=== PATIENT | female | born 1980 | race Caucasian/White ===

== ENCOUNTER 2018-12-05 15:54 | Outpatient (CLI) | payer BC, SELFPAY ==
--- NOTE | 2018-12-05 16:13 | DI.RAD_ITS ---
SYMPTOMS/DIAGNOSIS: COUGH, R05 PA AND LATERAL CHEST: The cardiac and mediastinal contours have a normal appearance. The lungs are well inflated and clear. No infiltrate or effusion is seen. There are no visible emphysematous changes or interstitial changes. IMPRESSION: Negative chest x-ray.
== END 2018-12-05 16:14 ==
PROVIDERS: PCP Family Medicine; Visit Provider Nurse Practitioner
DX: R05 Cough (principal)
CPT/HCPCS: 71046

== ENCOUNTER 2019-06-22 11:09 | Outpatient (REF) | payer BC, SELFPAY ==
[2019-06-22 21:09] LABS: ALT 27 U/L (12-78); AST 16 U/L (15-37); Anion Gap 9.2 mmol/L (3-11); BUN 11 mg/dL (7-18); CO2 29.8 mmol/L (21.0-32.0); CREATININE 0.92 mg/dL (0.55-1.02); Calcium 8.6 mg/dL (8.5-10.1); Chloride 104 mmol/L (98-107); Glucose 94 mg/dL (70-100); Potassium 4.2 mmol/L (3.5-5.1); Sodium 143 mmol/L (136-145)
[2019-06-22 21:14] LABS: Hemoglobin A1C 5.6 % (4.5-6.2)
== END 2019-06-22 11:29 ==
LOC: NCHCN 11:09
PROVIDERS: PCP Family Medicine; Visit Provider Nurse Practitioner Family
DX: Z51.81 Encounter for therapeutic drug level monitoring (principal); Z79.899 Other long term (current) drug therapy
CPT/HCPCS: 80048; 83036; 84450; 84460

== ENCOUNTER 2021-01-30 17:31 | Outpatient (REF) | payer OTHER, SELFPAY ==
--- NOTE | 2021-01-30 16:45 | PAPFT_PTH ---
PATIENT: Giselle Steiner LOC: [facility] U#:[id number] AGE/SX: 40/F ROOM: RE01/30/[address]: Anika Jack : 1980 BED: DIS: 01/30/2021 SPEC #: [id number] RECD: 02/02/21 13:10 STATUS: KEVIN RERoni #: [id number] VERONA: 01/30/21 16:[address]: Anika Jack DEPT: [facility] Cytology RECD BY: Marisol Hansen ENTERED: 02/02/21 13:10 SP TYPE: PAPFT OTHR DR: Marylin Garcia Tissues: 1 - CX/ENDOCX FOR PAP SMEARS Procedures: PAP THIN PREP/UVM Screening HPV DNA PROBE Comments: [id number]
== END 2021-01-30 17:32 | disposition home or self-care (01) ==
LOC: NCHCN 17:31
PROVIDERS: PCP Family Medicine; Visit Provider Nurse Practitioner Family
DX: Z00.00 Encounter for general adult medical examination without abnormal findings (principal); Z12.4 Encounter for screening for malignant neoplasm of cervix; Z01.419 Encounter for gynecological examination (general) (routine) without abnormal findings; Z11.51 Encounter for screening for human papillomavirus (HPV)
CPT/HCPCS: 88142; 87624

== ENCOUNTER 2021-02-16 02:30 | Outpatient (CLI) | payer OTHER, SELFPAY ==
--- NOTE | 2021-02-16 | DI.US_ITS ---
EXAM: US BREAST LT LIMITED CLINICAL HISTORY: LT BREAST LUMP, N63.23. TECHNIQUE: Limited ultrasound of the left breast was performed. The lateral half of the breast from 12 o'clock through 6 o'clock position, inclusive, was scanned. Also the left axilla. COMPARISON: Prior mammogram performed today was reviewed FINDINGS: There is no evidence of solid or significant cystic lesion. Left axilla is negative for significant adenopathy IMPRESSION: Negative left breast ultrasound. Today's diagnostic bilateral mammogram was also negative. Please see that separate report Appropriate follow-up is repeat breast imaging in 3 months time if the provider still feels that ther e is a lump. Alternatively this patient should be sent for breast surgery consultation. BI-RADS Category 1 - Negative Breast Density - Category B - Scattered areas of fibroglandular density Breast density Category C or D implies that the patient has dense breast tissue. Dense breast tissue can make it harder to find cancer on a mammogram. Dense breast tissue is also associated with an incr eased risk of breast cancer. This information about the result of the mammogram report was provided to the patient to raise their awareness. Use this report when you speak with the patient about their risks for breast cancer, which includes their family history. At that time, you may recommend additional screening tests (Ultrasoun d or MRI) as these tests may add significant information. A negative radiographic report should not delay biopsy if a dominant or clinically suspicious mass is present. Up to ten percent of cancers are not identified on mammography. A negative report may reinforce clinical impression. Adenosis and dense breasts may obscure an underlying neoplasm. False positive reports average 6 to 10%. Patient will receive a letter notifying them of these results.
--- NOTE | 2021-02-16 | DI.MAMMO_ITS ---
EXAM: MG MAMMO DIAGNOSTIC BI CLINICAL HISTORY: LT BREAST LUMP, N63.23, DIAGNOSTIC, FAMILY H/O BREAST CA,Z80.3. TECHNIQUE: Bilateral CC and MLO mammographic images were obtained with 3D Tomosynthesistechnique and utilizing computer aided detection (CAD). Also performed spot-compression CC and MLO views of the ar ea of possible clinical concern in the left breast. COMPARISON: None. This is a baseline mammogram on this 40-year-old patient. Her provider apparentl y felt a lump in the left breast upon routine examination. This patient did not present to her provi bessie with a lump. She still does not feel a lump. FINDINGS: There are no ominous masses nor malignant-appearing microcalcification groups in either breast. No s ignificant architectural distortion or skin thickening-traction. We also performed left breast ultrasound over the area of possible concern following today's mammogra m. This did not reveal any focal ultrasound findings Appropriate clinical follow-up is recommended. Clinically indicated repeat imaging in 3 months time could be performed. Alternatively this patient can have consultation with breast surgeon if there is high suspicion for a concerning lump on this despite negative convention breast imaging. IMPRESSION: No radiographic evidence of malignancy. See separate left breast ultrasound report BI-RADS Category 1 - Negative Breast Density - Category B - Scattered areas of fibroglandular density Breast density Category C or D implies that the patient has dense breast tissue. Dense breast tissue can make it harder to find cancer on a mammogram. Dense breast tissue is also associated with an incr eased risk of breast cancer. This information about the result of the mammogram report was provided to the patient to raise their awareness. Use this report when you speak with the patient about their risks for breast cancer, which includes their family history. At that time, you may recommend additional screening tests (Ultrasoun d or MRI) as these tests may add significant information. A negative radiographic report should not delay biopsy if a dominant or clinically suspicious mass is present. Up to ten percent of cancers are not identified on mammography. A negative report may reinforce clinical impression. Adenosis and dense breasts may obscure an underlying neoplasm. False positive reports average 6 to 10%. Patient will receive a letter notifying them of these results.
== END 2021-02-16 02:50 ==
PROVIDERS: PCP Family Medicine; Visit Provider Nurse Practitioner Family
DX: N63.23 Unspecified lump in the left breast, lower outer quadrant (principal); Z80.3 Family history of malignant neoplasm of breast
CPT/HCPCS: 76642; 77062; 77066; G0279

== ENCOUNTER → 2022-04-14 02:17 | Outpatient (CLI) | payer BC, SELFPAY ==
--- NOTE | 2022-04-14 16:30 | DI.MAMMO_ITS ---
Exam(s) MAMMO SCREENING EXAM: MAMMO SCREENING CLINICAL HISTORY: SCREEENING FOR BREAST CA, Z12.39, FAM HX BREAST CA, Z80.3. TECHNIQUE: Bilateral full field digital CC and MLO mammographic images were obtained with 3D tomosyn thesis and utilizing computer aided detection (CAD). COMPARISON: Prior baseline mammogram of February 2021 Very strong family history here. FINDINGS: No new significant radiograph findings right breast Medial aspect left breast there is some asymmetric tissue which appears slightly more dense than prev ious study. Less concerning on 3D imaging. Malignant-appearing microcalcification groups in this re gion nor elsewhere in either breast. There is no significant architectural distortion nor skin thickening-retraction. IMPRESSION: 1. No radiographic evidence of malignancy in right breast. 2. Medial left breast findings described above. Recommend spot compression CC and MLO views. Also b reast ultrasound. Very strong family history here BI-RADS Category 0 - Assessment Incomplete: Need additional imaging evaluation Breast Density - Category B - Scattered areas of fibroglandular density Breast density Category C or D implies that the patient has dense breast tissue. Dense breast tissue can make it harder to find cancer on a mammogram. Dense breast tissue is also associated with an incr eased risk of breast cancer. This information about the result of the mammogram report was provided to the patient to raise their awareness. Use this report when you speak with the patient about their risks for breast cancer, which includes their family history. At that time, you may recommend additional screening tests (Ultrasoun d or MRI) as these tests may add significant information. A negative radiographic report should not delay biopsy if a dominant or clinically suspicious mass is present. Up to ten percent of cancers are not identified on mammography. A negative report may reinforce clinical impression. Adenosis and dense breasts may obscure an underlying neoplasm. False positive reports average 6 to 10%. Patient will receive a letter notifying them of these results.
== END ==
PROVIDERS: PCP Nurse Practitioner Family; Visit Provider Nurse Practitioner Family
DX: Z12.31 Encounter for screening mammogram for malignant neoplasm of breast (principal); Z80.3 Family history of malignant neoplasm of breast; R92.8 Other abnormal and inconclusive findings on diagnostic imaging of breast
CPT/HCPCS: 77063; 77067

== ENCOUNTER → 2022-04-26 01:50 | Outpatient (CLI) | payer BC, SELFPAY ==
--- NOTE | 2022-04-26 | DI.US_ITS ---
Exam(s) MG MAMMO SCREEN CALL BACK UNI US BREAST LT LIMITED EXAM: MG MAMMO SCREEN CALL BACK UNI and U/S breast LT limited CLINICAL HISTORY: F/U ABNL MAMMO, LT BREAST ASYMMETRIC TISSUE,STRONG FAMILY H/O BREAST CA. TECHNIQUE: Craniocaudal and mediolateral oblique Full Field Digital Mammography views of the left br east with Computer Aided Diagnosis followed by Tomosynthesis and left breast ultrasound. COMPARISON: Priors available for comparison. FINDINGS: Mammography/Tomosynthesis: Masses/Architectural Distortion: None seen. Spot compression view shows no persistent abnormality. T he area looks like normal fibroglandular tissue. Microcalcifictions: No suspicious pleomorphic-type are seen. Skin Thickening/Nipple Retraction: None. Limited left breast US: Echotexture: Normal appearance of the glandular tissue. Shadowing: No suspicious foci. Cyst: There is a collection of simple cyst at the 9 o'clock position of the left breast 2 cm from the nipple. Solid lesions: None seen. Ductal dilation: None. IMPRESSION: 1. No evidence of malignancy is noted. 2. Unless there is more urgent need, follow-up screening mammography is recommended, as per [place] [employer] guidelines. 3. The findings were discussed with the patient on the date of the examination. BI-RADS Category 2 - Benign Findings Breast Density - Category B - Scattered areas of fibroglandular density Breast density Category C or D implies that the patient has dense breast tissue. Dense breast tissue can make it harder to find cancer on a mammogram. Dense breast tissue is also associated with an incr eased risk of breast cancer. This information about the result of the mammogram report was provided to the patient to raise their awareness. Use this report when you speak with the patient about their risks for breast cancer, which includes their family history. At that time, you may recommend additional screening tests (Ultrasoun d or MRI) as these tests may add significant information. A negative radiographic report should not delay biopsy if a dominant or clinically suspicious mass is present. Up to ten percent of cancers are not identified on mammography. A negative report may reinforce clinical impression. Adenosis and dense breasts may obscure an underlying neoplasm. False positive reports average 6 to 10%. Patient will receive a letter notifying them of these results.
== END ==
PROVIDERS: PCP Family Medicine; Visit Provider Nurse Practitioner Family
DX: Z12.31 Encounter for screening mammogram for malignant neoplasm of breast (principal); R92.8 Other abnormal and inconclusive findings on diagnostic imaging of breast; Z80.3 Family history of malignant neoplasm of breast; N60.12 Diffuse cystic mastopathy of left breast
CPT/HCPCS: 76642; 77063; 77067

== ENCOUNTER 2023-03-03 17:44 | Outpatient (REF) | payer BC, SELFPAY ==
[2023-03-03 15:10] LABS: ALT 19 U/L (14-59); AST 21 U/L (15-37); Alkaline Phosphatase 131 U/L (46-116); Anion Gap 10.3 mmol/L (3-11); BUN 14 mg/dL (7-18); Bilirubin, Total 0.3 mg/dL (0.2-1.0); CO2 23.7 mmol/L (21.0-32.0); CREATININE 0.9 mg/dL (0.55-1.02); Calcium 9.2 mg/dL (8.5-10.1); Calculated LDL 134 mg/dL (<100); Chloride 104 mmol/L (98-107); Cholesterol 220 mg/dL (<200); Estimated GFR 81.86 (mL/min/1.73m2); Glucose 102 mg/dL (74-106); HDL Cholesterol 32 mg/dL (40-60); Potassium 4.2 mmol/L (3.5-5.1); Sodium 138 mmol/L (136-145); Total Protein 8.4 g/dL (6.4-8.2); Triglyceride 272 mg/dL (<150)
[2023-03-03 15:30] LABS: Vitamin D 25 Total 16.7 ng/mL (30-100)
== END 2023-03-03 17:45 | disposition home or self-care (01) ==
LOC: NCHCN 17:44
PROVIDERS: PCP Family Medicine; Visit Provider Nurse Practitioner Family
DX: Z00.00 Encounter for general adult medical examination without abnormal findings (principal); E55.9 Vitamin D deficiency, unspecified
CPT/HCPCS: 80053; 80061; 82306

== ENCOUNTER 2024-05-04 15:59 | Outpatient (REF) | payer BC, SELFPAY ==
--- OUTSIDE RECORDS SUMMARY | 2024-05-04 16:01 | XMS_ITS | Continuity of Care Document ---
Author Name Unknown Organization [facility] Address [address] [place] [address] Care Team Providers Care Diving Coach Name Role Phone Anika Jack Primary Care Physician Encounter [facility] [id number] Date(s): 01/06/24 - 01/06/24 [facility] [address] [place] [address] Discharge Disposition: Home Allergies, Adverse Reactions, Alerts Substance Reaction Severity Status Adhesive Bandage Unknown Active Latex Unknown Active Assessment and Plan Future Appointments Medications buPROPion 150 mg/12 hours (SR) oral tablet, extended release Take 2 tablet once daily, 0 Refill(s) Start Date: 12/30/23 Status: Ordered Nexplanon 68 mg subcutaneous implant 0 Refill(s) Start Date: 12/30/23 Status: Ordered Saxenda 18 mg/3 mL subcutaneous solution 0.6 mg =, Subcutaneous, Daily, with a target of 2.4mg once daily, # 9 mL, 0 Refill(s) Start Date: 12/30/23 Stop Date: 01/06/24 Status: Ordered sertraline 50 mg oral tablet 50 mg = 1 tab, Oral, Daily, # 30 tab, 0 Refill(s) Start Date: 12/30/23 Status: Ordered zolpidem 5 mg oral tablet See Instructions, take 1-2 PO night of sleep study if needed, # 2 tab, 0 Refill(s), Pharmacy: [id number] Start Date: 01/05/24 Status: Ordered Problem List Condition Confirmation Course Effective Dates Status Health St at[facility] Informant Adjustment disorder with depressed mood Confirmed Active Binge eating disorder Confirmed Active Insomnia Confirmed Active Obesity Confirmed Active Pain in thoracic spine Confirmed Active Paresthesia Confirmed Active Restless leg syndrome Confirmed Active Snoring Confirmed Active Back muscle spasm Confirmed Active Varicose veins of calf Confirmed Active Vitamin D deficiency Confirmed Active Patient Care team information Care Team Personnel Name: Anika Jack Position: No Access Member Role: Primary Care Physician Address: Address: [address] [address] [place] Care Team Related Persons Name: BRANDO HUNT Deepa Address: [address] [id number]
--- OUTSIDE RECORDS SUMMARY | 2024-05-04 16:01 | XMS_ITS | Continuity of Care Document ---
Author Name Unknown Organization [facility] Address [address] [place] [address] Care Team Providers Care Oven Stripper Name Role Phone Anika Jack Primary Care Physician [phone] Encounter [facility] [id number] Date(s): 01/12/24 - 01/12/24 [facility] [address] [place] [address] Discharge Disposition: Home Allergies, Adverse Reactions, Alerts [...] needed, # 2 tab, 0 Refill(s), Pharmacy: [id number] Start Date: 01/05/24 Status: Ordered [...] Member Role: Primary Care Physician Address: Address: [address] [address] [place] Care Team Related Persons Name: BRANDO HUNT Deepa Address: [address] [id number]
[2024-05-04 21:25] LABS: HCT 43.7 % (36.0-46.0); HGB 14.2 g/dL (11.2-15.7); MCH 28.1 pg (27.0-33.0); MCHC 32.5 % (32.0-36.0); MCV 87 fL (80-95); MPV 10.8 fL (8.0-11.0); Platelet Count 406 10^3/uL (130-400); RBC 5.05 10^6/uL (3.93-5.22); RDW 13.5 % (11.7-14.6); RDW-SD 42.7 fL; WBC 8.99 10^3/uL (4.4-10.8)
[2024-05-04 21:40] LABS: ALT 19 U/L (14-59); AST 19 U/L (15-37); Albumin 3.9 g/dL (3.4-5.0); Alkaline Phosphatase 122 U/L (46-116); Anion Gap 9.8 mmol/L (3-11); BUN 10 mg/dL (7-18); CO2 26.2 mmol/L (21.0-32.0); CREATININE 0.8 mg/dL (0.55-1.02); Calcium 8.9 mg/dL (8.5-10.1); Calculated LDL 159 mg/dL (<100); Chloride 104 mmol/L (98-107); Cholesterol 238 mg/dL (<200); Glucose 96 mg/dL (74-106); HDL Cholesterol 37 mg/dL (40-60); Potassium 4.3 mmol/L (3.5-5.1); Sodium 140 mmol/L (136-145); Total Protein 7.4 g/dL (6.4-8.2); Triglyceride 213 mg/dL (<150)
== END 2024-05-04 16:00 | disposition home or self-care (01) ==
LOC: NCHCN 15:59
PROVIDERS: PCP Family Medicine; Visit Provider Nurse Practitioner Family
DX: Z00.00 Encounter for general adult medical examination without abnormal findings (principal); E66.9 Obesity, unspecified; Z13.220 Encounter for screening for lipoid disorders; Z13.228 Encounter for screening for other metabolic disorders; Z13.0 Encounter for screening for diseases of the blood and blood-forming organs and certain disorders involving the immune mechanism; Z13.1 Encounter for screening for diabetes mellitus
CPT/HCPCS: 80053; 80061; 85027; 83036

== ENCOUNTER 2024-06-01 10:37 | Outpatient (REF) | payer BC, SELFPAY ==
--- NOTE | 2024-06-01 13:30 | SKI_PTH ---
PATIENT: Giselle Steiner LOC: [facility] U#:[id number] AGE/SX: 44/F ROOM: RE06/01/[address]: Anika Jack : 1980 BED: DIS: 06/01/2024 SPEC #: [id number] RECD: 06/04/24 11:47 STATUS: KEVIN REQ #: [id number] VERONA: 06/01/24 13:[address]: Anika Jack DEPT: Surgical Specimen RECD BY: Marisol Hansen ENTERED: 06/04/24 11:48 SP TYPE: LOLI ARTEAGA DR: Marylin Garcia Tissues: 1 - SKIN BIOPSY(SHAVE/PUNCH) Procedures: SKIN LEVEL 4 Comments: [id number]
== END 2024-06-01 10:38 | disposition home or self-care (01) ==
LOC: NCHCN 10:37
PROVIDERS: PCP Family Medicine; Visit Provider Nurse Practitioner Family
DX: D22.5 Melanocytic nevi of trunk
CPT/HCPCS: 88305

== ENCOUNTER 2024-06-26 06:25 | Day surgery (SDC) | payer BC, SELFPAY ==
--- NOTE | 2024-06-25 14:51 | PDOC.DSDIS_ITS ---
Date of service: 06/26/24 Time of Service: 09:31 Discharge Plan Disposition Patient Disposition: Home Condition: Good Discharge Details Reason For Visit: gallbladder removal Attending Provider: Riri Johns Primary Care Provider: Anika Jack Home Meds and New Rx's Prescriptions: New ondansetron 4 mg tablet,disintegrating 4 mg PO Q6H PRNQty: 7 0RF tramadol 50 mg tablet 50 mg PO Q4H PRNQty: 14 0RF Continued Wegovy 0.25 mg/0.5 mL pen injector 0.25 mg subcut QWEEK Rx Instructions: administer weeks 1 through 4 of therapy omeprazole 40 mg capsule,delayed release(DR/EC) 40 mg PO DAILY ergocalciferol (vitamin D2) 400 UNIT tablet 1 tab-cap PO DAILY Patient Comments: TAKES ONCE A WEEK, doesn't know 'when she last took multivitamin Tablet 1 tab PO DAILY Nexplanon 68 mg implant 1 implant subdermal ONCE Rx Instructions: as a single dose bupropion HCl 100 mg tablet 150 mg PO DAILY sertraline 50 mg tablet 50 mg PO DAILY Discharge Instructions Additional Instructions: Care after Gallbladder Surgery -Pain control: ?For the first 72 hours after surgery, take you pain meds continuously and not just when you have pain.?? Alternate Tylenol 1000mg by mouth every 8 hours, and Ibuprofen 600mg every 6 hours.? Make sure you take ibuprofen with food and not on an empty stomach.? ??Use the tramadol for breakthrough pain- pain that is greater than a 7. ?- Use ICE! Ice really helps to keep the swelling down, and swelling causes pain. ??Twenty minutes on, and then off, continuously for the first 72hours.? After the first 72hrs, you can just use the Tylenol, ibuprofen, and ice, when you have pain.?? If you are taking narcotic pain medication, follow the instructions on the label and do not drive. Pain medications can make you very constipated. Make sure you are moving your bowels daily. If not, take Miralax, - Anesthesia makes you very constipated.? Take a dose of milk of magnesia the morning after surgery. ? Use an ice bag for the first 72 hours. This helps to decrease swelling, which causes pain. It is normal to be more sore/painful and swollen towards the end of the day and first thing in the morning. ? Gallbladder surgery can make you very nauseated; use Zofran for nausea, for the first 24 hours. The nausea generally stops after 24 hours. ? Use Miralax ?to prevent constipation (this is a particular side effect of pain medication and anesthesia). Do not allow yourself to become constipated. ? Avoid fatty or greasy foods; introduce these slowly, with care, after about 1 month. High-fat foods include: ? Foods that are fried, like Slovenian fries and potato chips ? High-fat meats, such as clifford, bologna, sausage, ground beef, and ribs, pork products ? High-fat dairy products, such as cheese, ice cream, cream, whole milk, and sour cream ? Pizza ? Foods made with lard or butter ? Creamy soups or sauces ? Meat gravies ? Chocolate ? Oils, such as palm and coconut oil ? Skin of chicken or turkey ? Nuts and nut butters ? Avocadoes ? Start out eating very small, bland amounts of food. Do not take pain pills on an empty stomach. - You will notice purple discoloration around the incisions.? This is the ?skin glue?.? This will wear off on its own.? It is OK to shower after 24hrs.? You do not need to cover the incisions. -You should walk frequently, gradually, increasing the distance. You may climb stairs, just go slowly. ? Do not go swimming or sit in a hot tub for two weeks. ? There are no stitches to remove. ? Do not drive your car x72hrs and then only if you have no pain and can move freely. Do not drive if you are taking pain narcotic pain medications. ? You may resume sexual activity whenever pain and soreness subside, usually in 2 weeks. ? Do no lift anything over 5 lbs. for two weeks. ? You may return to work in one week, or when you feel able, provided you do not have to do any heavy lifting or prolonged standing. ? You should return to Dr. Johns?s office for a post-op appointment about two weeks after surgery. A follow-up should have been scheduled for you already.? If there is not, please call the Surgical Clinic at: [phone] to schedule an appointment. My Medications for pain and nausea are: Tylenol/ibuprofen ?and ultram- for severe pain ?and Zofran-nausea When to Call the Office: ? If the incision becomes red or swollen, or there is more than a little drainage from it. ? If you develop a temperature higher than 100.5 F. ? If your eyes turn yellow ? Vomiting and can?t keep fluids down Activity:: See above Remove Dressings/Wound Care:: 24 hours Shower/Bathe:: 24 hours Diet:: See above Discharge Orders Discharge Orders: Discharge Order (Routine); Ordered 06/25/24 Ordered By: Riri Johns DS: Diagnosis Discharge Diagnosis (1) Binge eating disorder: Status: Acute (2) Pre-diabetes: Status: Acute (3) Body mass index (BMI) of 40.1 to 44.9 in adult: Status: Acute (4) Chronic GERD: Status: Acute (5) VALLE (nonalcoholic steatohepatitis): Status: Acute (6) Gallstones: Status: Acute Asessment and Plan: The patient is doing well post-op from their GB surgery.? They are having no nausea or vomiting. They are tolerating liquids and a snack. The pt is not having any chest pain or SOB.? Their pain is adequately controlled. They have been able to urinate.? ?HEENT:? no eye pain/drainage/redness/swelling. Mild sore throat ?Cardio- NSR, no chest pain, BP stable- see VS record ?Pulm: no sob or productive cough. No hemoptysis ?Incision- dressing is c/d/i w/ no excessive bleeding or drainage ?I discussed with the patient the findings at the time of surgery and the patient?s progress. ?We reviewed expectations at home; what the patient could expect for recovery time, and in the post-operative period.? We discussed the importance of walking to avoid blood clots and pneumonia.? We discussed and reviewed the patient's post-operative wound care and dressing needs.?? We reviewed their step-price pain management plan, Rx called to the pharmacy of their choice.? We reviewed activity and limitations-see discharge instructions. We reviewed warning signs, and when to seek medical attention- see d/c instructions.?? Patient was given a postoperative follow-up appointment. Patient verbalized understanding of their postoperative instructions, how do to take care of themselves and their incision, and the pain management plan. Please see discharge instructions.? (7) Chronic low back pain: Status: Chronic
[2024-06-26] VITALS (37 sets, daily range): BP systolic 107–126; BP diastolic 60–93; PULSE 68–88; RESP 9–26; TEMP 36.2–36.5; O2SAT 90–97; BMI 41.1
[2024-06-26] MEDS: Acetaminophen 500 MG TAB 1000 MG PO (06:50)
[2024-06-26] MEDS: Gabapentin 300 MG CAP 600 MG PO (06:50)
--- NOTE | 2024-06-26 07:06 | W.ANESPRE ---
General Info Date of Service Date Performed: 06/26/24 Height: 5 ft 9 in Weight: 126.3 kg Body Mass Index (BMI): 41.1 Surgical Procedure: Operation Date: 06/26/24 07:40 Proposed Procedure Side Surgeon p Cholecystectomy Laparoscopic Possible Open, Removal of Mole Riri Criss Johns, DO Meds Allergies and Home Medications Allergies Allergy/AdvReac Type Severity Reaction Status Date / Time adhesive Allergy Intermediate Itching Verified 06/26/24 06:43 Home Medication ?Medication ?Instructions ?Recorded ergocalciferol (vitamin D2) 10 mcg 1 tab-cap PO DAILY 03/07/14 (400 unit) tablet etonogestrel 68 mg subdermal 1 implant subdermal ONCE 01/19/23 implant (Nexplanon) multivitamin 1 tab PO DAILY 01/19/23 bupropion HCl 100 mg tablet 150 mg PO DAILY 06/07/24 omeprazole 40 mg capsule,delayed 40 mg PO DAILY 06/07/24 release semaglutide (weight loss) 0.25 0.25 mg subcut QWEEK 06/07/24 mg/0.5 mL subcutaneous pen injector (Wegovy) sertraline 50 mg tablet 50 mg PO DAILY 06/22/24 ondansetron 4 mg disintegrating 4 mg PO Q6H PRN #7 tabs 06/25/24 tablet tramadol 50 mg tablet 50 mg PO Q4H PRN #14 tabs 06/25/24 Current Visit Medications: Current Medications Generic Name Dose Route Start Last Admin Trade Name Freq PRN Reason Stop Dose Admin Acetaminophen 1,000 mg 06/26/24 06:00 06/26/24 06:50 Acetaminophen 500 Mg Tab PO 06/26/24 18:00 1,000 mg PREOP ALCIDES Administration Gabapentin 600 mg 06/26/24 06:00 06/26/24 06:50 Gabapentin 300 Mg Cap PO 06/26/24 18:00 600 mg PREOP ALCIDES Administration Ringer's Solution 1,000 mls @ 0 mls/hr 06/26/24 06:00 IV 07/25/24 23:59 INFUSION ALCIDES Cefazolin Sodium/Dextrose 2 gm in 50 mls @ 100 mls/hr 06/26/24 06:00 Ancef Duplex IVPB 06/26/24 18:00 PREOP ALCIDES Metronidazole 500 mg in 100 mls @ 100 mls/hr 06/26/24 06:00 Flagyl IVPB 06/26/24 16:00 PREOP ALCIDES Ondansetron HCl 4 mg/ Sodium 52 mls @ 200 mls/hr 06/26/24 02:24 Chloride IVPB 07/26/24 02:23 Q6H PRN PRN IV Miscellaneous Supplies 1 each 06/26/24 06:00 Iv Access IV 07/25/24 23:59 DIRECTED ALCIDES Indocyanine Green 5 mg 06/26/24 06:00 Indocyanine Green 25 Mg Vial IVP 06/26/24 16:00 PREOP ALCIDES Morphine Sulfate 2 mg 06/25/24 14:24 Morphine 4 Mg/Ml Syr IVP 07/25/24 14:23 Q1H PRN PRN Sodium Chloride 0 ml 06/26/24 06:00 Normal Saline Flush 10 Ml Syr IV 07/25/24 23:59 PRN PRN Sodium Chloride 0 ml 06/26/24 06:00 Normal Saline 10 Ml Vial IJ 07/25/24 23:59 DIRECTED PRN Sterile Water 0 ml 06/26/24 06:00 Water,Injection,Sterile 10 Ml Vial IJ 07/25/24 23:59 DIRECTED PRN Tramadol HCl 50 mg 06/26/24 02:24 Tramadol 50 Mg Tab PO 07/26/24 02:23 Q6H PRN PRN Pain PFSH Active Problems Active Problems: Problem Status Onset Code Gallstones Acute K80.20 Family history of genetic disorder Acute Z84.89 Chronic low back pain Chronic M54.50, G89.29 Binge eating disorder Acute F50.81 Pre-diabetes Acute R73.03 Body mass index (BMI) of 40.1 to 44.9 in adult Acute Z68.41 VALLE (nonalcoholic steatohepatitis) Acute K75.81 Chronic GERD Acute K21.9 De Quervain's tenosynovitis, bilateral Acute M65.4 Medical History Medical History Abnormal Pap smear of cervix 11/2015 Pap LGSIL - H. + HR HPV. Depression (~11/2012) counseling for treatment,situational with divorce Surgical History Surgical History Vascular Surgery (11/27/13) venous ablation Left leg , Ectopic (11/27/13) Tobacco Smoking/Tobacco Use Status: Former Tobacco Use Alcohol Alcohol Intake: never Substance Use Substance use: Never Substance use type: does not use Vital Signs and Lab Results Vital Signs Most Recent Vital Signs in EMR: Most Recent Vital Signs Temp Pulse Resp BP Pulse Ox 36.5 C 88 16 126/93 H 96 06/26/24 06:45 06/26/24 06:45 06/26/24 06:45 06/26/24 06:45 06/26/24 06:45 Point of Care Results Point of Care Results: POC- Test(urine) Negative 06/26/24 06:54 Lab Results Blood Type / Crossmatch: No Data to Display Complete Blood Count: No Data to Display Complete Metabolic Panel: No Data to Display Liver Function Panel: No Data to Display Coagulation Panel: No Data to Display Cardiac Panel: No Data to Display Arterial Blood Gas: No Data to Display Venous Blood Gas: No Data to Display Pancreas Panel: No Data to Display Thyroid Panel: No Data to Display Infectious Disease: No Data to Display Blood Cultures: No Data to Display Toxicology Panel: No Data to Display Panel: No Data to Display Anesthesia Assessment and Plan Anesthesia History Personal History: No History of Anesthesia Complications Family History: No Family History of Anesthesia Complications Exercise Tolerance Exercise Tolerance: Metabolic Equivalents>4 Pertinent Negatives Pertinent Negatives: No Symptoms of GERD Cardiac & Pulmonary Exam Cardiac Exam: Normal S1/S2 Heart Sounds Pulmonary Exam: Clear Bilateral Breath Sounds Implantable Cardiac Device Does patient have a Pacemaker or an ICD?: No Airway Exam Known Difficult Airway: No Mallampati Class: 3 Mouth Opening: Normal (> 3cm) Thyromental Distance: Greater than 3 cm Neck Range of Motion: Full ROM Neck Circumference: Normal Teeth Condition: Normal Dentition ASA Classification ASA Score: ASA 2 Emergency Case?: No NPO Status NPO Status: NPO Clears >2 hours, Solids >8 hours Status Status: Negative HCG Anesthesia Plan Resuscitation Status: Full Code Anesthesia Technique: General Anesthesia Airway Planned: Endotracheal Tube Monitors Used: Standard Monitors
[2024-06-26] MEDS: Lactated Ringers 1,000 ML 100 ML IV (07:22)
[2024-06-26] MEDS: Indocyanine green 25 MG VIAL 5 MG IVP (07:25)
[2024-06-26] MEDS: metroNIDAZOLE 500 MG/100 ML BAG 100 MG IVPB (07:33)
[2024-06-26] MEDS: ceFAZolin 2 GM/50 ML BAG IVPB (07:55)
[2024-06-26] MEDS: Bupivacaine 0.25% Pres-Free W/EPI 30 ML VIAL (08:13)
--- NOTE | 2024-06-26 09:13 | GB_PTH ---
PATIENT: Giselle Steiner LOC: [facility] U#:[id number] AGE/SX: 44/F ROOM: RE06/26/[address]: Riri Johns : 1980 BED: DIS: 06/26/2024 SPEC #: [id number] RECD: 06/26/24 13:02 STATUS: KEVIN RERoni #: [id number] VERONA: 06/26/24 09:[address]: Riri Johns DEPT: Surgical Specimen RECD BY: Marisol Hansen ENTERED: 06/26/24 13:04 SP TYPE: GB OTHR DR: Anika Jack Tissues: 1 - GALLBLADDER 2 - SKIN BIOPSY(SHAVE/PUNCH) Procedures: GROSS AND MICRO LEVEL 3 SKIN LEVEL 4 Comments: [id number]
--- NOTE | 2024-06-26 09:26 | W.PM.OP ---
Date of service: 06/26/24 Time of Service: 09:26 Operative Note Operative Note DATE OF PROCEDURE: 06/26/24 PRE-OP DIAGNOSIS: Chronic cholecystitis/cholelithiasis POST-OP DIAGNOSIS: same PROCEDURE: Laparoscopic cholecystectomy SURGEON: Riri Villar HAND PROFILER: Stephie Amos ANESTHESIA TYPE: Local By Surgeon and General LMA/ETT Refer to Anesthesia Record ESTIMATED BLOOD LOSS: 5 PATHOLOGY: other COMPLICATIONS: None Patient was transported to: PACU Patient's condition: stable Procedure Description: CHOLECYSTECTOMY POST-OPERATIVE REPORT PRE-OPERATIVE DIAGNOSIS: cholecystitis, cholelithiasis. POST-OPERATIVE DIAGNOSIS: chronic cholecystitis, cholelithiasis PROCEDURE: Laparoscopic cholecystectomy. SURGEON: Riri Villar, DO ANESTHESIA: General. ESTIMATED BLOOD LOSS: Less than 10 mL COMPLICATIONS: The patient tolerated the procedure without complication. INDICATIONS: The pt is seen at the request of there PCP regarding acute on chronic cholecystitis, cholelithiasis. The pt has failed outpt conservative medical measures and is here today for laparoscopic cholecystectomy. Informed consent was obtained, explaining risks and benefits of the procedure including but not limited to bleeding, infection, pneumonia, blood clots, possible damage to bowel, bladder, blood vessels, bile ducts, possible open procedure, complications of general anesthesia and other unforetold complications. PROCEDURE: The patient agrees and is brought to the operative room suite and placed in supine position. Pt receives IV ICG preOp to aid w/ bile duct visualization.? Anesthesia was administered per the Department of Anesthesia. The patient did receive IV antibiotics. NG tube and Parker catheter are placed. The patient was prepped and draped in the usual sterile fashion using DuraPrep scrub solution. Pause for the cause was done. 20 mL of 1% buffered lidocaine was used for local anesthetization. A stab incision was made in the umbilicus and the Verres inserted. Drop test was positive and insufflation was begun. When 15 mm of pressure was noted on the monitor, the Veress was removed and #5 port inserted. The camera was inserted through the port and shows no damage to underlying structures. A 10 mm port was then placed in the epigastric position under direct visualization following creation of local field blocks as well as two 5 mm ports in the right upper quadrant. The camera was moved to one of the secondary ports so we could view the umbilical trocar site, and there is are no hernias or adhesions. The gallbladder fundus was grasped and retracted towards the right shoulder. Infundibulum was grasped and retracted laterally. The hepat-duodenal ligament is entered. The cystic duct and artery are dissected out and the most inferior portion of the gallbladder plate is removed from the liver and the critical view of safety was obtained after clearing away all fatty material. Endo Clips were placed across the duct and artery and these structures are divided. The remainder of the gallbladder was excised from the liver bed. The gallbladder was placed in a bag and brought out. Examination of the gallbladder shows indeed the cystic duct and artery to have been divided. The remainder of the abdomen was copiously irrigated with a liter of saline. All saline is removed. There is no bleeding or bile leakage from the liver bed or the clips sites. An EndoClose needle was used to close the 10 mm port site with an 0 Vicryl. All ports and instruments are removed. SPonge and needle counts are correct. Pneumoperitoneum is evacuated and the port sites are monitored to make sure there is no bleeding at the time of desufflation. ??Port sites are irrigated and the skin is closed with 4-0 Monocryl in a running subcuticular fashion. Skin glue sterile dressings are applied. The patient tolerated the procedure well without complications, transferred to the recovery room in stable condition. RIRI VILLAR, DO
[2024-06-26] MEDS: Normal Saline 10 ML VIAL IJ (09:55)
[2024-06-26] MEDS: HYDROmorphone 2 MG/ML SYR IVP ×2 (09:55→10:15)
--- NOTE | 2024-06-26 11:28 | W.ANESPOSTOP ---
Postoperative Evaluation Date, Time and Location Date Performed: 06/26/24 Time Performed: 11:28 Patient Location: Day Surgery Unit Vital Signs Most Recent Imported Vital Signs: Most Recent Vital Signs Temp Pulse Resp BP Pulse Ox 36.2 C L 70 16 116/83 96 06/26/24 11:06 06/26/24 11:06 06/26/24 11:06 06/26/24 11:06 06/26/24 11:06 Pain Score Most Recent Pain Score: Most Recent Pain Score Pain Level 2 06/26/24 11:06 Assessment Mental Status: Awake (Alert & Oriented to Patient Baseline) Airway and Respiratory Function: Patent airway with normal (patient baseline) respiratory exam Cardiovascular Function: Hemodynamically Stable Hydration Status: Adequately Hydrated Nausea & Vomiting: No Nausea or Vomiting Pain: Pain is tolerable per patient Peripheral Nerve Block: Patient did not receive a nerve block
== END 2024-06-26 11:40 | disposition home or self-care (01) ==
LOC: SUR 06:25
PROVIDERS: PCP Nurse Practitioner Family; Visit Provider Surgery
PROC: 0FT44ZZ Resection of Gallbladder, Percutaneous Endoscopic Approach (ICD-10-PCS; CPT 47562; principal; 2024-06-26 07:30)
DX: K80.10 Calculus of gallbladder with chronic cholecystitis without obstruction (principal); L90.5 Scar conditions and fibrosis of skin; K42.9 Umbilical hernia without obstruction or gangrene
CPT/HCPCS: 47562; 11400; 81025; 88304; 88305; J0131; J0690; J1100; J1170; J1836; J1885; J2001; J2250; J2405; J2704; J3010

== ENCOUNTER 2024-10-07 21:58 | Emergency (ER) | payer BC, SELFPAY ==
[2024-10-07 22:08] VITALS: BP 140/98; PULSE 105; RESP 16; TEMP 36.3; O2SAT 98
--- NOTE | 2024-10-07 22:15 | DI.CT_ITS ---
Exam(s) CT ABDOMEN PELVIS W EXAM: CT ABDOMEN PELVIS W CLINICAL HISTORY: RLQ mildly TTP, N/V/D. TECHNIQUE: Imaging Protocol: Axial computed tomography images with coronal and sagittal reformatted images were created and reviewed CONTRAST MATERIAL: Intravenous: Omnipaque 350 Contrast volume:100 ml Oral: no COMPARISON: No exams were available for comparison FINDINGS: ABDOMEN and PELVIS: Lung Bases: No acute findings. Liver: Normal density. No suspicious mass. Gallbladder and biliary tract: Status post cholecystectomy. No biliary dilation. Pancreas: Normal density. No abnormal calcifications or inflammatory process. No evidence of mass. Spleen: Normal. Kidneys: Normal size, contour and axis. No radiodense stones. No obstructive uropathy. No suspicious masses seen. Adrenal glands: No masses seen. Vasculature: Abdominal aorta non-dilated. Soft tissues: Small fat containing umbilical hernia. Bladder: No gross wall thickening. No calculi.No focal mass. Bowel: Very little stool. Some fluid noted in cecum through transverse colon. Fluid also seen in lo ops of small bowel. No obstruction. No bowel wall thickening. Appendix normal. Peritoneal cavity: No ascites. No focal collection. No mesenteric inflammatory response. Bones: Unremarkable for age. Reproductive organs: Unremarkable. Lymph nodes: No pathologically enlarged lymph nodes. IMPRESSION:: Fluid in small bowel and ascending through transverse colon consistent with diarrheal illness. No evidence of obstruction or wall thickening. RADIATION DOSE DELIVERED: 879.85mGy.cm Total DLP DATA REPOSITORY: All CT scans at this facility are submitted to the National Radiology Data Registry (NRDR) Dose Index Registry (DIR) with the [employer] ([employer]). RADIATION OPTIMIZATION: All CT scans at this facility use at least one of these dose optimization te chniques: automated exposure control; mA and/or kV adjustment per patient size (includes targeted exa ms where dose is matched to clinical indication); or iterative reconstruction.
[2024-10-07 22:23] LABS: Bilirubin Small (Negative); Blood Small (Negative); Clarity Sl Cloudy (Clear); Glucose Negative (Negative); Ketones Negative (Negative); Leukocyte Esterase Trace (Negative); Nitrite Negative (Negative); Specific Gravity >= 1.030 (1.005-1.025); Urobilinogen 0.2 mg/dL (Up to 0.2)
[2024-10-07 22:31] LABS: Bacteria Few HPF (Negative); C & S Indicated? Yes; Casts Negative LPF (Negative); Crystals Negative HPF (Negative); Epithelial Cells Few HPF (Negative); Mucus Trace (Negative)
[2024-10-07 22:50] LABS: Lactate 1.5 mmol/L (0.6-1.4)
[2024-10-07] MEDS: Omnipaque 350 MG/ML 100 ML BTL IJ (22:51)
[2024-10-07 22:54] LABS: Abs Immature Grans 0.04 10^3/uL (0.0-0.06); Absolute Eosinophil Count 0.36 10^3/uL (0.0-0.7); Absolute Lymphocyte Count 1.99 10^3/uL (1.2-3.4); Absolute Monocyte Count 0.74 10^3/uL (0.1-0.8); Basophils % 0.8 %; Eosinophils % 2.7 %; HCT 42.1 % (36.0-46.0); HGB 13.6 g/dL (11.2-15.7); Immature Grans % 0.3 %; MCH 28.5 pg (27.0-33.0); MCHC 32.3 % (32.0-36.0); MCV 88 fL (80-95); MPV 10.1 fL (8.0-11.0); Monocytes % 5.6 %; Neutrophils % 75.6 %; Platelet Count 466 10^3/uL (130-400); RBC 4.78 10^6/uL (3.93-5.22); RDW 13.2 % (11.7-14.6); RDW-SD 43.3 fL; WBC 13.27 10^3/uL (4.4-10.8)
[2024-10-07 22:55] LABS: Absolute Basophil Count 0.11 10^3/uL (0.0-0.2); Absolute Neutrophil Count 10.03 10^3/uL (1.2-6.7)
[2024-10-07] MEDS: Normal Saline - Diluent 50 ML VIAL IJ (22:56)
--- NOTE | 2024-10-07 22:56 | W.ED.GENAD ---
Discharge Plan Disposition Patient Disposition: Home Condition: Good Discharge Details Clinical Impression: Vomiting, Acute diarrhea, UTI (urinary tract infection) Primary Care Provider: Anika Jack ED Provider: Maria D Blackwell Home Meds and New Rx's Prescriptions: New prochlorperazine maleate [Compazine] 5 mg tablet 5 mg PO TID PRNQty: 10 0RF loperamide 2 mg capsule 2 mg PO QID PRNQty: 20 0RF cefpodoxime 200 mg tablet 200 mg PO BID Qty: 20 0RF Rx Instructions: must administer with a meal/food Continued Wegovy 0.25 mg/0.5 mL pen injector 0.25 mg subcut QWEEK Rx Instructions: administer weeks 1 through 4 of therapy ergocalciferol (vitamin D2) 400 UNIT tablet 1 tab-cap PO DAILY Patient Comments: TAKES ONCE A WEEK, doesn't know 'when she last took multivitamin Tablet 1 tab PO DAILY Nexplanon 68 mg implant 1 implant subdermal ONCE Rx Instructions: as a single dose bupropion HCl 100 mg tablet 150 mg PO DAILY sertraline 50 mg tablet 50 mg PO DAILY ondansetron 4 mg tablet,disintegrating 4 mg PO Q6H PRNQty: 7 0RF Held omeprazole 40 mg capsule,delayed release(DR/EC) 40 mg PO DAILY Hold Instructions: Resume on 10/18/24. Do not take while on cefpodoxime, resume after you finish your antibiotics Discharge Instructions Instructions: Diarrhea, Adult ED, Urinary Tract Infection, Adult ED, Nausea and Vomiting, Adult ED Additional Instructions: Antibiotic twice a day for the next 10 days. Prochlorperazine up to every 8 hours as needed for nausea/vomiting. Loperamide up to 4 times a day as needed for diarrhea. Call your primary care doctor today to schedule an appointment to be seen within the next 48 hours to followup on your visit here. Return to the emergency department for new or worsening symptoms including inability to keep down fluids, Stand Alone Forms: Work Release HPI General Date/Time Provider Initiated Documentation: 10/07/24 22:06. HPI Narrative: 44yoF presenting with N/V/D x 2 days. [place] well yesterday during the day, in the evening had abdominal 'gurgling' and a few episodes of diarrhea. Today has had frequent small volume diarrhea (~20 episodes, watery, nonbloody) and vomiting (~6 episodes, non bloody non bilious). Has not been keeping anything down. No abdominal pain. No pain anywhere. Three days ago has some dysuria, increased her PO fluid intake and symptoms resolved within a day. Otherwise in her usual state of health [facility] no fevers, chills, rash, flank pain, back pain, shortness of breath, chest pain, or other concerns. Related Data Home Medications ?Medication ?Instructions ?Recorded ?Confirmed ergocalciferol (vitamin D2) 10 mcg 1 tab-cap PO DAILY 03/07/14 10/07/24 (400 unit) tablet etonogestrel 68 mg subdermal 1 implant subdermal ONCE 01/19/23 10/07/24 implant (Nexplanon) multivitamin 1 tab PO DAILY 01/19/23 10/07/24 bupropion HCl 100 mg tablet 150 mg PO DAILY 06/07/24 10/07/24 omeprazole 40 mg capsule,delayed 40 mg PO DAILY 06/07/24 10/07/24 release semaglutide (weight loss) 0.25 0.25 mg subcut QWEEK 06/07/24 10/07/24 mg/0.5 mL subcutaneous pen injector (Wegovy) sertraline 50 mg tablet 50 mg PO DAILY 06/22/24 10/07/24 ondansetron 4 mg disintegrating 4 mg PO Q6H PRN #7 tabs 06/25/24 10/07/24 tablet cefpodoxime 200 mg tablet 200 mg PO BID #20 tabs 10/08/24 loperamide 2 mg capsule 2 mg PO QID PRN #20 caps 10/08/24 prochlorperazine maleate 5 mg 5 mg PO TID PRN #10 tabs 10/08/24 tablet (Compazine) Previous Rx's ?Medication ?Instructions ?Recorded ondansetron 4 mg disintegrating 4 mg PO Q6H PRN #7 tabs 06/25/24 tablet cefpodoxime 200 mg tablet 200 mg PO BID #20 tabs 10/08/24 loperamide 2 mg capsule 2 mg PO QID PRN #20 caps 10/08/24 prochlorperazine maleate 5 mg 5 mg PO TID PRN #10 tabs 10/08/24 tablet (Compazine) Allergies Allergy/AdvReac Type Severity Reaction Status Date / Time adhesive Allergy Intermediate Itching Verified 10/07/24 22:13 General Stated Complaint: Nausea/Vomit/Diar FELECIA: 3 Review of Systems Narrative: see HPI Exam Narrative Exam Narrative: General: Alert, well appearing, well nourished, in no acute distress. Head: Normocephalic, atraumatic Neck: Trachea midline, ?Neck supple. ENT: ?Tacky MM.? No oropharygeal lesions or exudate. Cardiac: ?HR 80's, regular, no murmurs appreciated Resp: No respiratory distress. CTAB. Abd: ?Soft, non-distended, minimaly TTP in RLQ with no rebound or guarding. : ?No suprapubic tenderness. No CVA tenderness. Extremities: ?No deformities.? No peripheral edema. Neurologic: GCS 15. ? Moves all extremities freely against gravity Course Vital Signs Vital signs: Vital Signs Temperature 36.3 C L 10/07/24 22:08 Pulse 105 H 10/07/24 22:08 Respiratory Rate 16 10/07/24 22:08 Blood Pressure 140/98 H 10/07/24 22:08 Pulse Oximetry 98 10/07/24 22:08 Temperature 36.3 C L 10/07/24 22:08 Temperature Source Temporal Artery Scan 10/07/24 22:08 Pulse 105 H 10/07/24 22:08 Respiratory Rate 16 10/07/24 22:08 Respiratory Effort Normal, Non-Labored 10/07/24 22:24 Blood Pressure 140/98 H 10/07/24 22:08 Blood Pressure Position Sitting 10/07/24 22:08 Pulse Oximetry 98 10/07/24 22:08 Oxygen Delivery Method Room Air 10/07/24 22:08 Oxygen Flow Rate 0 10/07/24 22:08 Lab/Test Results Lab/Test Results: 10/07/24 22:45 Blood Blood Culture - Pending 10/07/24 22:34 Blood Blood Culture - Pending 10/07/24 22:05 Urine - Reflex from Ua Urine Culture - Pending Laboratory Tests Range/Units 10/07/24 10/07/24 22:05 22:45 WBC (4.4-10.8) 10^3/uL 13.27 H RBC (3.93-5.22) 10^6/uL 4.78 Hgb (11.2-15.7) g/dL 13.6 Hct (36.0-46.0) % 42.1 MCV (80-95) fL 88 MCH (27.0-33.0) pg 28.5 MCHC (32.0-36.0) % 32.3 RDW (11.7-14.6) % 13.2 Plt Count (130-400) 10^3/uL 466 H MPV (8.0-11.0) fL 10.1 Immature Gran % % 0.3 Neutrophils % % 75.6 Lymphocytes % % 15.0 Monocytes % % 5.6 Eosinophils % % 2.7 Basophils % % 0.8 Nucleated RBC % (0.0-0.3) % 0.0 Absolute Neutrophils (1.2-6.7) 10^3/uL 10.03 H Absolute Lymphocytes (1.2-3.4) 10^3/uL 1.99 Absolute Monocytes (0.1-0.8) 10^3/uL 0.74 Absolute Eosinophils (0.0-0.7) 10^3/uL 0.36 Absolute Basophils (0.0-0.2) 10^3/uL 0.11 VBG Lactate (0.6-1.4) mmol/L 1.5 H Urine Color (Yellow) Yellow Urine Clarity (Clear) Sl Cloudy Urine pH (5-8) 5.0 Ur Specific [place] (1.005-1.025) >= 1.030 H Urine Protein (Neg-Trace) mg/dL 30 H Urine Ketones (Negative) mg/dL Negative Urine Blood (Negative) Small H Urine Nitrite (Negative) Negative Urine Bilirubin (Negative) Small H Urine Urobilinogen (Up to 0.2) mg/dL 0.2 Ur Leukocyte Esterase (Negative) Trace H Urine RBC (0-2) HPF 3-5 H Urine WBC (0-5) HPF 10-20 H Ur Epithelial Cells (Negative) HPF Few Urine Crystals (Negative) HPF Negative Urine Bacteria (Negative) HPF Few Urine Casts (Negative) LPF Negative Urine Mucus (Negative) Trace Ur Culture Indicated? Yes Urine Glucose (Negative) mg/dL Negative POC Urine Test Start: 10/07/24 22:22 Freq: Status: Complete Protocol: Document 10/07/24 22:23 ALANA (Rec: 10/07/24 22:24 ALANA [id number]) Test(Urine)-POC POC- Test(urine) Negative POC- Test(urine) Negative Medical Decision Making 44yoF presenting with N/V/D x 2 days. Not keeping anything down today. No abdominal pain. Did have urinary symptoms a few days ago which resolved after she increased PO fluids. Has been taking zofran without improvement in N/V. HR 105 on arrival after ambulating into triage, vital signs otherwise reassuring, HR subsequently in 80's on my assessment without intervention. Dry mucous membranes on exam as well as slight RLQ tenderness with no rebound or guarding. No CVA tenderness to suggest pyelonephritits. Unlikely ovarian pathology (torsion/ectopic/tuboovarian abscess/etc.) with no significant abdominal pain and presence of frequent diarrhea; would not transfer for pelvic ultrasound. Will treat N/V with compazine (pt is on sertraline and bupropion) while awaiting results of workup. 1L IVFB for volume depletion. -Labs reviewed as below, CBC with mild leukocytsois at 13 (nonspecific) and no anemia, CMP with no actionable abnormalities, lactate reassuring at 1.5, procal negative, negative, UA suggestive of infection with 10-20 WBC. -CT abd/pelvis independently reviewed; no bowel obstruction or free fluid on my view, radiology read with no appendicitis) and normal kidneys. With initial elevated HR and mild leukocytosis pt is technically SIRS positive however clinical picture and remainder of workup not supportive of sepsis. She has no significant chronic medical conditions, is afebrile, non-toxic on exam, reassuring lactate and procal, and HR improved after rest without intervention. Out of abundance of caution will send blood cultures and give single dose of IV ceftriaxone here for UTI, plan to discharge home on cefpo if able to tolerate PO. May be combination of UTI and gastroenteritis, will with N/V will err on the side of caution and prescribe 10 day course of abx. PO challenged and tolerated well. On reassessment reports feeling much better. Abdominal exam without tenderness. Patient requests discharge home which is reasonable. Discharged home on cefpodoxime, compazine, loperamide. Discharge instructions and return precautions were reviewed with patient who verbalized understanding. All questions were answered and she is in full agreement with the plan. Imaging Data Radiologic Study: Imaging: CT Scan Radiologist's impression: IMPRESSION: Fluid throughout the small bowel and much of the colon. This appearance is nonspecific but commonly seen in the setting of diarrhea from any cause, including gastroenteritis. Clinical correlation is recommended. Lab Data Lab results reviewed: Yes I reviewed the patient's lab results. Labs: 10/07/24 22:56 Blood Blood Culture - Pending 10/07/24 22:45 Blood Blood Culture - Pending 10/07/24 22:05 Urine - Reflex from Ua Urine Culture - Pending Laboratory Tests Range/Units 10/07/24 10/07/24 22:05 22:45 WBC (4.4-10.8) 10^3/uL 13.27 H RBC (3.93-5.22) 10^6/uL 4.78 Hgb (11.2-15.7) g/dL 13.6 Hct (36.0-46.0) % 42.1 MCV (80-95) fL 88 MCH (27.0-33.0) pg 28.5 MCHC (32.0-36.0) % 32.3 RDW (11.7-14.6) % 13.2 Plt Count (130-400) 10^3/uL 466 H MPV (8.0-11.0) fL 10.1 Immature Gran % % 0.3 Neutrophils % % 75.6 Lymphocytes % % 15.0 Monocytes % % 5.6 Eosinophils % % 2.7 Basophils % % 0.8 Nucleated RBC % (0.0-0.3) % 0.0 Absolute Neutrophils (1.2-6.7) 10^3/uL 10.03 H Absolute Lymphocytes (1.2-3.4) 10^3/uL 1.99 Absolute Monocytes (0.1-0.8) 10^3/uL 0.74 Absolute Eosinophils (0.0-0.7) 10^3/uL 0.36 Absolute Basophils (0.0-0.2) 10^3/uL 0.11 VBG Lactate (0.6-1.4) mmol/L 1.5 H Sodium (136-145) mmol/L 143 Potassium (3.5-5.1) mmol/L 3.7 Chloride (98-107) mmol/L 106 Carbon Dioxide (21.0-32.0) mmol/L 24.1 Anion Gap (3-11) mmol/L 12.9 H BUN (7-18) mg/dL 10 Creatinine (0.55-1.02) mg/dL 0.9 Est GFR (CKD-EPI 2020) (mL/min/1.73m2) 80.84 Glucose (74-106) mg/dL 126 H Calcium (8.5-10.1) mg/dL 8.7 Total Bilirubin (0.2-1.0) mg/dL 0.28 AST (15-37) U/L 17 ALT (14-59) U/L 18 Alkaline Phosphatase (46-116) U/L 136 H Total Protein (6.4-8.2) g/dL 7.9 Albumin (3.4-5.0) g/dL 3.7 Lipase (<78) U/L 27 Procalcitonin ng/mL < 0.10 Serum HCG, Qual Negative Urine Color (Yellow) Yellow Urine Clarity (Clear) Sl Cloudy Urine pH (5-8) 5.0 Ur Specific [place] (1.005-1.025) >= 1.030 H Urine Protein (Neg-Trace) mg/dL 30 H Urine Ketones (Negative) mg/dL Negative Urine Blood (Negative) Small H Urine Nitrite (Negative) Negative Urine Bilirubin (Negative) Small H Urine Urobilinogen (Up to 0.2) mg/dL 0.2 Ur Leukocyte Esterase (Negative) Trace H Urine RBC (0-2) HPF 3-5 H Urine WBC (0-5) HPF 10-20 H Ur Epithelial Cells (Negative) HPF Few Urine Crystals (Negative) HPF Negative Urine Bacteria (Negative) HPF Few Urine Casts (Negative) LPF Negative Urine Mucus (Negative) Trace Ur Culture Indicated? Yes Urine Glucose (Negative) mg/dL Negative Quality:SDOH Health Related Social Needs: No Data to Display PFSH All Active Problems (Updated 10/08/24 @ 00:16 by Maria D Blackwell MD) UTI (urinary tract infection) (Acute) Acute diarrhea (Acute) Vomiting (Acute) Gallstones (Acute) Family history of genetic disorder (Acute) Breast cancer Chronic low back pain (Chronic) Binge eating disorder (Acute) Pre-diabetes (Acute) Body mass index (BMI) of 40.1 to 44.9 in adult (Acute) VALLE (nonalcoholic steatohepatitis) (Acute) Chronic GERD (Acute) De Quervain's tenosynovitis, bilateral (Acute) Medical History (Updated 10/08/24 @ 00:16 by Maria D Blackwell MD) Abnormal Pap smear of cervix 11/2015 Pap LGSIL - H. + HR HPV. Depression (~11/2012) counseling for treatment,situational with divorce Surgical History (Updated 06/26/24 @ 14:42 by Chanelle Esteban) Hx laparoscopic cholecystectomy (~06/2024) Vascular Surgery (11/27/13) venous ablation Left leg , Ectopic (11/27/13) Family History Mother Essential hypertension treated with meds Personal history of malignant neoplasm breast cancer Hyperlipidemia Father Alcohol abuse Essential hypertension treated with meds Personal history of malignant neoplasm prostate Hyperlipidemia Mental disorder depression Sister No problems noted. Sister No problems noted. Brother No problems noted. Brother No problems noted. Brother No problems noted. Son Cleft palate at with surgical repair at [facility] [place] Other Stroke Social History Smoking/Tobacco Use Status: Former Tobacco Use Quit Date: 11/07/14 Smoking risk assessment performed?: Yes Alcohol Intake: never Drug use: Never Substance use type: does not use Housing: house Do you feel safe at home: Yes Do you feel safe in your relationship?: Yes
[2024-10-07] MEDS: Prochlorperazine 10 MG/2 ML VIAL 5 MG IVP (23:01)
[2024-10-07] MEDS: Normal Saline 50 ML (23:01)
[2024-10-07] MEDS: Normal Saline 1,000 ML 1000 ML IV (23:03)
[2024-10-07] MEDS: cefTRIAXone 1 GM/50 ML BAG IVPB (23:03)
[2024-10-07 23:09] LABS: ALT 18 U/L (14-59); AST 17 U/L (15-37); Albumin 3.7 g/dL (3.4-5.0); Alkaline Phosphatase 136 U/L (46-116); Anion Gap 12.9 mmol/L (3-11); BUN 10 mg/dL (7-18); Bilirubin, Total 0.28 mg/dL (0.2-1.0); CO2 24.1 mmol/L (21.0-32.0); CREATININE 0.9 mg/dL (0.55-1.02); Chloride 106 mmol/L (98-107); Estimated GFR 80.84 (mL/min/1.73m2); Glucose 126 mg/dL (74-106); Lipase 27 U/L (<78); Potassium 3.7 mmol/L (3.5-5.1); Sodium 143 mmol/L (136-145); Total Protein 7.9 g/dL (6.4-8.2)
[2024-10-07 23:13] LABS: HCG Qual (Serum) Negative
[2024-10-07 23:15] LABS: Calcium 8.7 mg/dL (8.5-10.1)
--- NOTE | 2024-10-07 23:23 | DI.VRAD_ITS ---
PROCEDURE INFORMATION: Exam: CT Abdomen And Pelvis With Contrast Exam date and time: 10/07/2024 10:50 PM Age: 44 years old Clinical indication: Abdominal pain; Localized; Right lower quadrant (rlq); Patient HX: Rlq mildly ttp, n/v/d TECHNIQUE: Imaging protocol: Computed tomography of the abdomen and pelvis with contrast. COMPARISON: US ABDOMEN LIMITED 05/14/2024 11:38 AM FINDINGS: Lungs: Lung bases clear. Liver: Normal appearing liver. Gallbladder and biliary ducts: Prior cholecystectomy. No biliary dilatation. Pancreas: Normal appearing pancreas. Spleen: Splenomegaly, 15 cm craniocaudal dimension. Adrenal glands: Normal appearing adrenal glands. Kidneys and ureters: Normal appearing kidneys. No hydronephrosis. Stomach and bowel: No oral contrast. Stomach partially distended with fluid and gas. Fluid throughout the small bowel. No small bowel dilatation to suggest obstruction. Fluid throughout the cecum, ascending colon, and transverse colon. Downstream colon well evacuated and collapsed. No evidence of diverticulitis or colitis. Appendix: Normal appendix. Intraperitoneal space: No gross ascites or free air. Vasculature: Normal caliber abdominal aorta. Lymph nodes: No pathologically enlarged mesenteric, retroperitoneal, or pelvic sidewall lymph nodes. Urinary bladder: Urinary bladder collapsed and not well evaluated but grossly unremarkable, as seen. Reproductive: Anteverted uterus, normal in size. Normal-sized ovaries. Suggestion of a 1.5 cm dominant left ovarian follicle. Asymmetric prominence of the left parauterine, adnexal, and gonadal veins, nonspecific but described in the setting of pelvic congestion syndrome. Bones/joints: No acute fracture seen among the bones of the abdomen or pelvis. Soft tissues: Diastasis recti. Small fat containing ventral hernia at the umbilicus. IMPRESSION: Fluid throughout the small bowel and much of the colon. This appearance is nonspecific but commonly seen in the setting of diarrhea from any cause, including gastroenteritis. Clinical correlation is recommended. Dictated and Authenticated by: Chiki Thao MD. Ordering:ESTER Killian MD
[2024-10-07 23:24] VITALS: BP 119/83; PULSE 89; RESP 14; O2SAT 98
[2024-10-07 23:24] LABS: Procalcitonin < 0.10 ng/mL
[2024-10-08 00:19] VITALS: BP 152/86; PULSE 78; RESP 14; O2SAT 96
[2024-10-08 01:25] VITALS: BP 142/84; PULSE 82; RESP 14; O2SAT 98
== END 2024-10-08 01:27 | disposition home or self-care (01) ==
PROVIDERS: Emergency Provider Student in an Organized Health Care Education/Training Program; PCP Nurse Practitioner Family
DX: R11.2 Nausea with vomiting, unspecified (principal); R19.7 Diarrhea, unspecified; N39.0 Urinary tract infection, site not specified; Z79.85 Long-term (current) use of injectable non-insulin antidiabetic drugs; Z87.891 Personal history of nicotine dependence
CPT/HCPCS: 80053; 83690; 84145; 87040; 74177; 81003; 81015; 83605; 84703; 85025; 87086; J0696; J0780; J3490

== ENCOUNTER 2024-10-18 16:12 | Outpatient (REF) | payer BC, SELFPAY ==
[2024-10-18 16:41] LABS: C Diff PCR Positive (Negative)
[2024-10-20 10:59] LABS: Campylobacter PCR Negative (Negative); Salmonella PCR Negative (Negative); Shiga Toxin PCR Negative (Negative); Shigella/Enteroinvasive Ecoli Negative (Negative)
== END 2024-10-18 16:13 | disposition home or self-care (01) ==
LOC: NCHCN 16:12
PROVIDERS: PCP Nurse Practitioner Family; Visit Provider Nurse Practitioner Family
DX: R19.7 Diarrhea, unspecified (principal)
CPT/HCPCS: 87493; 87505; 87177

== ENCOUNTER 2024-11-15 15:14 | Outpatient (REF) | payer BC, SELFPAY ==
[2024-11-15 21:40] LABS: Bilirubin Negative (Negative); Blood Trace-intact (Negative); Clarity Turbid (Clear); Glucose Negative (Negative); Ketones Trace mg/dL (Negative); Leukocyte Esterase Trace (Negative); Nitrite Negative (Negative); Specific Gravity >= 1.030 (1.005-1.025); Urobilinogen 0.2 mg/dL (Up to 0.2)
[2024-11-15 21:56] LABS: Bacteria Moderate HPF (Negative); C & S Indicated? C&S Done As Ordered; Casts Negative LPF (Negative); Crystals Few Amorphous HPF (Negative); Epithelial Cells Rare HPF (Negative); Mucus Negative (Negative); RBC 0-2 HPF (0-2)
== END 2024-11-15 15:15 | disposition home or self-care (01) ==
LOC: NCHCN 15:14
PROVIDERS: PCP Nurse Practitioner Family; Visit Provider Nurse Practitioner Family
DX: N89.9 Noninflammatory disorder of vagina, unspecified (principal)
CPT/HCPCS: 81003; 81015; 87086; 87480; 87510; 87660

== ENCOUNTER 2024-11-23 21:37 | Outpatient (REF) | payer BC, SELFPAY ==
[2024-11-23 21:06] LABS: Bilirubin Small (Negative); Blood Negative (Negative); Clarity Cloudy (Clear); Glucose Negative (Negative); Ketones Trace mg/dL (Negative); Leukocyte Esterase Negative (Negative); Nitrite Negative (Negative); Specific Gravity >= 1.030 (1.005-1.025); Urobilinogen 0.2 mg/dL (Up to 0.2); pH 5.5 (5-8)
== END 2024-11-23 21:38 | disposition home or self-care (01) ==
LOC: NCHCN 21:37
PROVIDERS: PCP Nurse Practitioner Family; Visit Provider Nurse Practitioner Family
DX: N89.9 Noninflammatory disorder of vagina, unspecified (principal)
CPT/HCPCS: 81003

== ENCOUNTER 2024-12-06 16:12 | Outpatient (REF) | payer BC, SELFPAY ==
--- NOTE | 2024-12-06 15:55 | PAPFT_PTH ---
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
== END 2024-12-06 16:13 | disposition home or self-care (01) ==
LOC: LBN 16:12
PROVIDERS: PCP Nurse Practitioner Family; Visit Provider Obstetrics & Gynecology
DX: Z11.51 Encounter for screening for human papillomavirus (HPV) (principal); Z01.419 Encounter for gynecological examination (general) (routine) without abnormal findings
CPT/HCPCS: 88142; 87624

== ENCOUNTER 2024-12-06 16:37 | Outpatient (REF) | payer BC, SELFPAY ==
[2024-12-06 16:59] LABS: C Diff PCR Negative (Negative)
[2024-12-07 13:52] LABS: Campylobacter PCR Negative (Negative); Salmonella PCR Negative (Negative); Shiga Toxin PCR Negative (Negative); Shigella/Enteroinvasive Ecoli Negative (Negative)
[2024-12-10 15:54] LABS: Giardia Ag, F Negative (Negative)
== END 2024-12-06 16:38 | disposition home or self-care (01) ==
LOC: NCHCN 16:37
PROVIDERS: PCP Nurse Practitioner Family; Visit Provider Nurse Practitioner Family
DX: R19.7 Diarrhea, unspecified (principal)
CPT/HCPCS: 87328; 87329; 87493; 87505